=== PATIENT | female | born 1970 | race Native Hawaiian/Other Pacific Islander ===

== ENCOUNTER 2021-07-28 00:12 | Emergency (ER) | payer OTHER ==
[~2021-07-28] VITALS: Ht 162.6 cm; Wt 55.8 kg
[2021-07-28 00:12] VITALS: TEMP 98.7
[2021-07-28 00:45] LABS: POTASSIUM 3.1 mmol/L (3.6-5.2); SODIUM 140 mmol/L (136-145)
[2021-07-28 00:49] LABS: PLATELET COUNT 220 K/uL (152-353)
[2021-07-28 00:55] LABS: PARTIAL THROMBOPLASTIN TIME 22.7 SECONDS (24.5-33.6)
[2021-07-28 05:31] VITALS: BP 122/62
== END 2021-07-28 05:31 | disposition home or self-care (01) ==
LOC: ED 00:12
PROVIDERS: Family Medicine
DX: S32.018A Other fracture of first lumbar vertebra, initial encounter for closed fracture (principal); N39.0 Urinary tract infection, site not specified; V48.0XXA Car driver injured in noncollision transport accident in nontraffic accident, initial encounter; Y92.89 Other specified places as the place of occurrence of the external cause
CPT/HCPCS: 80053; 80307; 81000; 82550; 84484; 85027; 85610; 85730; 87077; 87086; 87088; 87186; 93005; 96374; 96375; 99284; J1100; J1885